=== PATIENT | male | born 1955 | race Caucasian/White ===

== ENCOUNTER 2019-01-23 18:44 | Emergency (ER) | payer SELFPAY ==
--- NOTE | 2019-01-23 19:21 | ER Document Report ---
ED Medical Screen (RME) - General Chief Complaint: Breathing Difficulty Stated Complaint: DIFFICULTY BREATHING Time Seen by Provider: 01/23/19 19:18 Mode of Arrival: Ambulatory Information source: Patient Notes: 63-year-old male presented to ED for severe left upper back/chest pain with difficulty breathing short of breath diminished breath sounds since Tuesday. He is tachycardic dyspneic with O2 sat of 94-95. Will get a CTA, cardiac enzymes, chest x-ray, and labs. Patient states she smokes 2 cigarettes a day as well as pot and works on on a dredge. I have greeted and performed a rapid initial assessment of this patient. A comprehensive ED assessment and evaluation of the patient, analysis of test results and completion of medical decision making process will be conducted by an additional ED providers. Dictation of this chart was performed using voice recognition software; therefore, there may be some unintended grammatical errors. TRAVEL OUTSIDE OF THE [place] IN LAST 30 DAYS: No - Related Data Allergies/Adverse Reactions: codeine [Codeine] Adverse Reaction (Verified 12/06/14 09:59) Past Medical History - Immunizations Hx Diphtheria, Pertussis, Tetanus Vaccination: Yes Physical Exam - Vital signs Vitals: Temp Pulse Resp BP Pulse Ox 98.1 F 106 H 19 159/82 H 96 01/23/19 19:00 01/23/19 19:00 01/23/19 19:00 01/23/19 19:00 01/23/19 19:00 Course - Vital Signs Vital signs: Temp Pulse Resp BP Pulse Ox 98.1 F 106 H 19 159/82 H 96 01/23/19 19:00 01/23/19 19:00 01/23/19 19:00 01/23/19 19:00 01/23/19 19:00
[2019-01-23 19:40] LABS: INTERNATIONAL RATION (INR) 1.02; PROTHROMBIN TIME 13.9 SEC (11.4-15.4)
[2019-01-23 19:41] LABS: PARTIAL THROMBOPLASTIN TIME 31.7 SEC (23.5-35.8)
[2019-01-23 19:47] LABS: ABSOLUTE EOSINOPHILS # (AUTO) 0.1 10^3/uL (0.0-0.6); ABSOLUTE LYMPHOCYTES (AUTO) 2.5 10^3/uL (0.5-4.7); ABSOLUTE MONOCYTES (AUTO) 0.9 10^3/uL (0.1-1.4); BASOPHILS % (AUTO) 0.4 % (0-2); EOSINOPHILS % (AUTO) 0.7 % (0-6); HEMATOCRIT 42.3 % (37.9-51.0); HEMOGLOBIN 14.2 g/dL (13.5-17.0); LYMPHOCYTES % (AUTO) 19.8 % (13-45); MEAN CORPUSCULAR HEMOGLOBIN 30.6 pg (27.0-33.4); MEAN CORPUSCULAR HGB CONC 33.6 g/dL (32.0-36.0); MEAN CORPUSCULAR VOLUME 91 fl (80-97); MONOCYTES % (AUTO) 7.3 % (3-13); PLATELET COUNT 286 10^3/uL (150-450); RED BLOOD COUNT 4.65 10^6/uL (4.35-5.55); SEGMENTED NEUTROPHILS % (AUTO) 71.8 % (42-78); TOTAL CELLS COUNTED % (AUTO) 100 %; WHITE BLOOD COUNT 12.6 10^3/uL (4.0-10.5)
[2019-01-23 20:36] LABS: ALANINE AMINOTRANSFERASE 22 U/L (21-72); ALBUMIN 3.6 g/dL (3.5-5.0); ALKALINE PHOSPHATASE 111 U/L (38-126); ANION GAP 11 (5-19); ASPARTATE AMINO TRANSFERASE 14 U/L (17-59); BILIRUBIN,DIRECT 0.3 mg/dL (0.0-0.4); BILIRUBIN,TOTAL 0.3 mg/dL (0.2-1.3); BLOOD UREA NITROGEN 18 mg/dL (7-20); CALCIUM 9.5 mg/dL (8.4-10.2); CARBON DIOXIDE 31 mmol/L (22-30); CHLORIDE 97 mmol/L (98-107); GLUCOSE 159 mg/dL (75-110); POTASSIUM 4.4 mmol/L (3.6-5.0); SODIUM 139.1 mmol/L (137-145); TOTAL PROTEIN 6.6 g/dL (6.3-8.2)
[2019-01-23 20:54] LABS: TROPONIN I < 0.012 ng/mL
--- NOTE | 2019-01-23 21:35 | RADIOLOGY REPORT (SQ) ---
CT CHEST ANGIOGRAPHY WITHOUT THEN WITH IV CONTRAST HISTORY: Shortness of breath. COMPARISON: None. TECHNIQUE: CT angiogram of the chest with IV contrast. 3-D MIP images were obtained in coronal and sagittal reconstructions. This exam was performed according to our departmental dose-optimization program, which includes automated exposure control, adjustment of the mA and/or kV according to patient size and/or use of iterative reconstruction technique. FINDINGS: No filling defects are seen in the pulmonary trunk or the left and right main pulmonary artery. There is limited evaluation of the segmental branches due to motion artifact. There is a small left pleural effusion along with a focal area of consolidation in the upper segment of the left lower lobe. No pneumothorax is seen. There are small mediastinal and left hilar lymph nodes. The heart size is normal without pericardial effusion. The visualized upper abdomen demonstrates simple renal cyst but no acute findings. There are mild degenerative changes of the spine. No acute bony findings in the thorax. IMPRESSION: 1. No central pulmonary embolism. 2. Left upper lobe consolidation with small left pleural effusion.
[2019-01-23 23:05] VITALS: BP 143/94
[2019-01-23] MEDS ORDERED: DOXYCYCLINE HYCLATE 100 MG TABLET PO ONE (23:20)
--- NOTE | 2019-01-23 23:23 | ER Document Report ---
ED General - General Chief Complaint: Breathing Difficulty Stated Complaint: DIFFICULTY BREATHING Time Seen by Provider: 01/23/19 19:18 Primary Care Provider: MARGAUX KING PA-C [Primary Care Provider] - Follow up as needed Mode of Arrival: Ambulatory Notes: 63-year-old male smoker presents to ED for severe left upper back/chest pain with difficulty breathing and shortness of breath since Tuesday. He was initially mildly tachycardic at 105 and dyspneic. He denies fevers, chills, headache, nausea or vomiting, complains of cough, complains of chest wall pain, denies abdominal pain, denies urinary symptoms, denies numbness or tingling in any of the extremities. Denies earache or sore throat. Dates cough is productive but has chest wall pain when he takes deep breaths or with movement. No other complaints TRAVEL OUTSIDE OF THE [place] IN LAST 30 DAYS: No - Related Data Allergies/Adverse Reactions: codeine [Codeine] Adverse Reaction (Verified 12/06/14 09:59) Past Medical History - General Information source: Patient - Social History Smoking Status: Never Smoker Chew tobacco use (# tins/day): No Drug Abuse: None Family History: Other - Cancer Patient has suicidal ideation: No Patient has homicidal ideation: No - Past Medical History Cardiac Medical History: Reports: Hx Hypertension - mild Renal/ Medical History: Denies: Hx Peritoneal Dialysis - Immunizations Hx Diphtheria, Pertussis, Tetanus Vaccination: Yes Review of Systems - Review of Systems Constitutional: See HPI EENT: See HPI Cardiovascular: See HPI Respiratory: See HPI Gastrointestinal: See HPI Musculoskeletal: See HPI Neurological/Psychological: See HPI Physical Exam - Vital signs Vitals: Temp Pulse Resp BP Pulse Ox 98.1 F 106 H 19 159/82 H 96 01/23/19 19:00 01/23/19 19:00 01/23/19 19:00 01/23/19 19:00 01/23/19 19:00 - Notes Notes: PHYSICAL EXAMINATION: Reviewed vital signs and charting by RN GENERAL: Alert, interacts well. No acute distress. HEAD: Normocephalic, atraumatic. EYES: Pupils equal and round. Extraocular movements intact. ENT: Oral mucosa moist, tongue midline. NECK: Full range of motion. Supple. Trachea midline. LUNGS: Crackles in left upper lobe, all other pinto clear to auscultation, mild expiratory wheeze left upper lobe HEART: Regular rate and rhythm. No murmur ABDOMEN: soft, non-tender. Non-distended. Bowel sounds present. no McBurney's point tenderness, no Pacheco sign. EXTREMITIES: Moves all 4 extremities spontaneously. No edema, No cyanosis. Normal distal neurovascular exam BACK: No CVAT NEUROLOGIC: Oriented and appropriate. Normal speech. PSYCH: Normal affect, normal mood. SKIN: Warm, dry, normal turgor. No rashes or lesions noted. Course - Re-evaluation Re-evalutation: 01/23/19 23:28 Overall well-appearing, currently not tachycardic, patient is short of breath but he attributes it to pain with movement. CTA did not show a pulmonary embolism but did show a left upper lobe consolidation. I will treat him with doxycycline and give him an inhaler with a spacer. He has a primary care provider in's needs very and I instructed him to follow-up with her in the next 1 to 2 days. - Vital Signs Vital signs: Temp Pulse Resp BP Pulse Ox 97.9 F 93 16 143/94 H 97 01/23/19 23:03 01/23/19 23:03 01/23/19 23:03 01/23/19 23:03 01/23/19 23:03 - Laboratory Result Diagrams: 01/23/19 19:25 01/23/19 19:25 Laboratory results interpreted by me: 01/23/19 01/23/19 19:25 19:25 WBC 12.6 H Absolute Neutrophils 9.0 H Chloride 97 L Carbon Dioxide 31 H Glucose 159 H AST 14 L Discharge - Discharge Clinical Impression: Costochondritis Pneumonia Qualifiers: Pneumonia type: due to unspecified organism Laterality: left Lung location: upper lobe of lung Qualified Code(s): J18.1 - Lobar pneumonia, unspecified organism Condition: Good Disposition: HOME, SELF-CARE Instructions: Pneumonia ([facility]) Additional Instructions: You have been diagnosed with a pneumonia. It is very important that you take all of your antibiotics until they are gone even if you are feeling better. Please return to the emergency department immediately if you began having worsening shortness of breath, become confused, have worsening pain, pass out, have persistent vomiting that prevents you from being able to drink fluids for more than 12 hours, or have any other symptoms that are worrisome to you. Ple ase follow-up with your primary care doctor in the next 1-2 days. Prescriptions: Doxycycline Hyclate 100 mg PO BID #14 capsule Referrals: MARGAUX KING PA-C [Primary Care Provider] - Follow up as needed
--- NOTE | 2019-01-24 07:34 | EKG REPORT ---
SEVERITY:- BORDERLINE ECG - SINUS RHYTHM PROBABLE LEFT ATRIAL ABNORMALITY BORDERLINE RIGHT AXIS DEVIATION BORDERLINE INFERIOR Q WAVES : Confirmed by: Patricio Dang MD 24-Jan-2019 07:33:38
== END 2019-01-23 23:43 | disposition home or self-care (01) ==
LOC: ER 18:44
DX: J18.1 Lobar pneumonia, unspecified organism (principal); M94.0 Chondrocostal junction syndrome [Tietze]; M54.6 Pain in thoracic spine; R06.00 Dyspnea, unspecified; I10 Essential (primary) hypertension; Z88.6 Allergy status to analgesic agent
CPT/HCPCS: 36415; 71275; 80053; 82553; 84484; 85025; 85610; 85730; 93005; 93010; 99285

== ENCOUNTER 2019-10-17 07:25 | Day surgery (SDC) | payer MEDICAID ==
[~2019-10-17 07:25] MED LIST: CHONDR SU A NA/HYALUR INTRAOC KIT (SURGICARE) ONE; EPINEPHRINE INJ/PF 1 MG/1 ML AMPULE ONE; KETOROLAC TROMETHAMINE 0.45% 4 DROP/0.4 ML DROPERETTE OD PRN; LIDOCAINE 1%/PHENYLEPHRINE 1.5% 1 ML VIAL ONE; MIDAZOLAM 2 MG/2 ML INJ ONE
[2019-10-17] MEDS: BESIFLOXACIN HCL 0.6% OPH SUSP 5 ML BOTTLE OD PRN ×4 (07:56→08:54)
[2019-10-17] MEDS: TROPICAMIDE 1% OPH SOLN 15 ML OD PRN ×3 (07:56→08:16)
[2019-10-17] MEDS: CYCLOPENTOLATE 0.2%/PHENYLEPHRINE 1% OPH SOLN 2 ML OD PRN ×3 (07:56→08:16)
[2019-10-17] MEDS: TETRACAINE HCL 0.5% OPH SOLN 4 ML OD PRN ×3 (07:57→08:32)
[2019-10-17] MEDS: DORZOLAMIDE HCL 2%/TIMOLOL MALEAT 0.5% OPH SOLN 10 ML OD PRN ×2 (08:54)
--- NOTE | 2019-10-18 10:18 | Operative Report ---
Operative Report-[facility] Operative Report: DATE OF SURGERY: October 17, 2019 PREOPERATIVE DIAGNOSIS: NUCLEAR CATARACT, RIGHT EYE. POSTOPERATIVE DIAGNOSIS: NUCLEAR CATARACT, RIGHT EYE. PROCEDURE PERFORMED: PHACOEMULSIFICATION WITH POSTERIOR CHAMBER INTRAOCULAR LENS IMPLANT, RIGHT EYE. SURGEON: Freddy Young DO MEDICATIONS AND ANESTHESIA: Versed: IV Versed Tetracaine drops: 1 to 2 drops given as needed COMPLICATION: None INDICATIONS FOR SURGERY: Medical necessity: Best corrected visual acuity worse than 20/40 secondary to cataracts with impairment of ability to carry out needs or desired activities, blurred vision, visual distortion, reduced contrast sensitivity and/or glare with association functional impairment and supporting documentation/testing, and cataracts causing symptomatic impairment of visual functions not corrected with tolerable changes in glasses or contact lenses interfering with activities of daily life. PROCEDURE: Consent: The risks, benefits and alternatives of this procedures was discussed with the patient. The patient read and signed the consent forms, was identified and was seated in the exam chair. IOL: MX 60 E IOL Diopters: 25.0 Phacoemulsification with posterior chamber intraocular lens implant: The face was prepped with 5% povidone iodine solution, and a few drops of 5% povidone iodine solution was instilled into the inferior fornix. A non-fenestrated drape was placed over the eye and the lids were parted with the speculum. A paracentesis was made with a 15 degree blade, and 1% lidocaine MPF followed by viscoelastic was injected into the anterior chamber. A 2.4 mm metal micro- keratome was used to create a temporal clear corneal incision. A circular anterior capsulorrhexis was created, followed by hydro-dissection and hydro- delineation. The phacoemulsification hand piece was inserted and the nucleus was removed with the Phaco chop technique. The irrigation-aspiration hand piece was used to remove the residual cortex, and vacuum the posterior capsule. The capsular bag was inflated and viscoelastic and the above-mentioned IOL was injected into the eye with care to insert both leaning and trailing haptics in the capsular bag. The irrigation/aspiration hand piece was reinserted to remove residual viscoelastic from the capsular bag and anterior chamber. The corneal incision was hydrated, and anterior chamber was inflated with sterile BSS via the paracentesis site, and found to be watertight. Postop medication: 1 drop of prednisolone into operative by followed by 1 drop of Cosopt into operative eye followed by 1 drop of Besivance intraoperative by other:
== END 2019-10-17 09:40 | disposition home or self-care (01) ==
LOC: SC 07:25
PROVIDERS: ATTEND Ophthalmology
DX: H25.11 Age-related nuclear cataract, right eye (principal); F17.210 Nicotine dependence, cigarettes, uncomplicated; I10 Essential (primary) hypertension; E78.00 Pure hypercholesterolemia, unspecified; Z86.73 Personal history of transient ischemic attack (TIA), and cerebral infarction without residual deficits; Z85.828 Personal history of other malignant neoplasm of skin; I48.91 Unspecified atrial fibrillation; Z79.01 Long term (current) use of anticoagulants; Z79.899 Other long term (current) drug therapy; Z88.5 Allergy status to narcotic agent
CPT/HCPCS: 66984; V2632; J2250; J3490 ×3; J0171; J2370; 142

== ENCOUNTER 2019-10-31 07:25 | Day surgery (SDC) | payer MEDICAID ==
[~2019-10-31 07:25] MED LIST changes: -CHONDR SU A NA/HYALUR INTRAOC KIT (SURGICARE) ONE; -EPINEPHRINE INJ/PF 1 MG/1 ML AMPULE ONE; +FENTANYL CITRATE INJ/PF 100 MCG/2 ML AMPUL ONE; -KETOROLAC TROMETHAMINE 0.45% 4 DROP/0.4 ML DROPERETTE OD PRN; +KETOROLAC TROMETHAMINE 0.45% 4 DROP/0.4 ML DROPERETTE OS PRN; -LIDOCAINE 1%/PHENYLEPHRINE 1.5% 1 ML VIAL ONE; +ONDANSETRON HCL INJ/PF 4 MG/2 ML SDV ONE
[2019-10-31] MEDS ORDERED: CHONDR SU A NA/HYALUR INTRAOC KIT (SURGICARE) ONE (07:42)
[2019-10-31] MEDS: BESIFLOXACIN HCL 0.6% OPH SUSP 5 ML BOTTLE OS PRN ×5 (07:44→08:32)
[2019-10-31] MEDS: TROPICAMIDE 1% OPH SOLN 15 ML OS PRN ×3 (07:44→08:04)
[2019-10-31] MEDS: TETRACAINE HCL 0.5% OPH SOLN 4 ML OS PRN ×3 (07:44→08:09)
[2019-10-31] MEDS: CYCLOPENTOLATE 0.2%/PHENYLEPHRINE 1% OPH SOLN 2 ML OS PRN ×3 (07:44→08:04)
[2019-10-31] MEDS: EPINEPHRINE INJ/PF 1 MG/1 ML AMPULE ONE ×2 (08:18→08:19)
[2019-10-31] MEDS: LIDOCAINE 1%/PHENYLEPHRINE 1.5% 1 ML VIAL ONE ×2 (08:18→08:19)
[2019-10-31] MEDS: DORZOLAMIDE HCL 2%/TIMOLOL MALEAT 0.5% OPH SOLN 10 ML OS PRN ×3 (08:31→08:32)
--- NOTE | 2019-10-31 14:16 | Operative Report ---
Operative Report-[facility] Operative Report: DATE OF SURGERY: October 31, 2019 PREOPERATIVE DIAGNOSIS: NUCLEAR CATARACT, LEFT EYE. POSTOPERATIVE DIAGNOSIS: NUCLEAR CATARACT, LEFT EYE. PROCEDURE PERFORMED: PHACOEMULSIFICATION WITH POSTERIOR CHAMBER INTRAOCULAR LENS IMPLANT, LEFT EYE. SURGEON: Freddy Young DO MEDICATIONS AND ANESTHESIA: Versed: IV Versed Tetracaine drops: 1 to 2 drops given as needed COMPLICATION: None INDICATIONS FOR SURGERY: Medical necessity: Best corrected visual acuity worse than 20/40 secondary to cataracts with impairment of ability to carry out needs or desired activities, blurred vision, visual distortion, reduced contrast sensitivity and/or glare with association functional impairment and supporting documentation/testing, and cataracts causing symptomatic impairment of visual functions not corrected with tolerable changes in glasses or contact lenses interfering with activities of daily life. PROCEDURE: Consent: The risks, benefits and alternatives of this procedures was discussed with the patient. The patient read and signed the consent forms, was identified and was seated in the exam chair. IOL: MX 60 E 24.5 IOL Diopters: Phacoemulsification with posterior chamber intraocular lens implant: The face was prepped with 5% povidone iodine solution, and a few drops of 5% povidone iodine solution was instilled into the inferior fornix. A non-fenestrated drape was placed over the eye and the lids were parted with the speculum. A paracentesis was made with a 15 degree blade, and 1% lidocaine MPF followed by viscoelastic was injected into the anterior chamber. A 2.4 mm metal micro- keratome was used to create a temporal clear corneal incision. A circular anterior capsulorrhexis was created, followed by hydro-dissection and hydro- delineation. The phacoemulsification hand piece was inserted and the nucleus was removed with the Phaco chop technique. The irrigation-aspiration hand piece was used to remove the residual cortex, and vacuum the posterior capsule. The capsular bag was inflated and viscoelastic and the above-mentioned IOL was injected into the eye with care to insert both leaning and trailing haptics in the capsular bag. The irrigation/aspiration hand piece was reinserted to remove residual viscoelastic from the capsular bag and anterior chamber. The corneal incision was hydrated, and anterior chamber was inflated with sterile BSS via the paracentesis site, and found to be watertight. Postop medication:1 drop of prednisolone into operative by followed by 1 drop of Cosopt into operative eye followed by 1 drop of Besivance intraoperative by Other:
== END 2019-10-31 09:08 | disposition home or self-care (01) ==
LOC: SC 07:25
PROVIDERS: ATTEND Ophthalmology
DX: H25.12 Age-related nuclear cataract, left eye (principal); Z98.41 Cataract extraction status, right eye; Z79.01 Long term (current) use of anticoagulants; Z79.899 Other long term (current) drug therapy; F17.210 Nicotine dependence, cigarettes, uncomplicated; Z88.5 Allergy status to narcotic agent; I10 Essential (primary) hypertension; E78.00 Pure hypercholesterolemia, unspecified; Z86.73 Personal history of transient ischemic attack (TIA), and cerebral infarction without residual deficits; Z85.828 Personal history of other malignant neoplasm of skin; I48.91 Unspecified atrial fibrillation
CPT/HCPCS: 66984; 00142; V2632; J2250; J3490 ×3; J0171; J3010; J2405; J2370; 142